=== PATIENT | male | born 1985 | race Two or more races ===

== ENCOUNTER 2019-04-29 12:42 | Inpatient (IN) | payer OTHER | END 2019-05-01 01:26 | disposition other institution (70) | LOC: YASAS 12:42 → Y6N 15:55 ==

== ENCOUNTER 2019-05-01 17:24 | Inpatient (IN) | payer OTHER ==
[2019-05-01 18:11] VITALS: BMI 23.3
--- NOTE | 2019-05-01 20:55 | HP ---
COWS - Scale Resting Pulse: 1= PA 81-100 Sweatin=Flushed/Facial Moisture Restless Observation: 3= Extraneous Movement Pupil Size: 2= Moderately Dilated (Pupils = 5 mm) Bone or Joint Aches: 0= None Runny Nose/ Eye Tearin= Nasal Congestion GI Upset > 30mins: 0= None Tremor Observation: 0= None Yawning Observation: 0= None Anxiety or Irritability: 4=Extreme Anxiety Goose Flesh Skin: 0=Smooth Skin COWS Score: 13 CIWA Score - Admission Criteria OASAS Guidelines: Admission for Medically Managed Detox: Requires at least one of the followin. CIWA greater than 12 2. Seizures within the past 24 hours 3. Delirium tremens within the past 24 hours 4. Hallucinations within the past 24 hours 5. Acute intervention needed for co occurring medical disorder 6. Acute intervention needed for co occurring psychiatric disorder 7. Severe withdrawal that cannot be handled at a lower level of care (continued vomiting, continued diarrhea, abnormal vital signs) requiring intravenous medication and/or fluids 8. Admission ROS [facility] Chief Complaint: I need to continue my detox. Allergies/Adverse Reactions: Allergies Allergy/AdvReac Type Severity Reaction Status Date / Time No Known Allergies Allergy Verified 05/01/19 18:06 History of Present Illness: THE PATIENT IS BEING ADMITTED A CONTINUATION OF THE 04/29/19 ADMISSION. PATIENT WAS EVALUATED AT [facility] AND RETURNED TO US, VIA AMBULANCE, IN LESS THAN 12 HOURS. 30 yom sent to [facility] on 05/01/19 for uncontrolled erratic behavioral issues. Patient was not medicated with methadone while at [facility]. Patient returned from [facility], w/ dx of substance induced psychiatric disorder, and being readmitted for completion of detox protocol. Discharged from [facility] at 12:30 pm and returned to [facility]. History and physical documentation from 04/29/19 admission reviewed and also reviewed with patient. Patient states "I just answered those questions before". Hx of heroin use disorder since age 13: Daily use via intravenous. Last used 04/29. Todays U-Tox (+) for MTD (Rx'd 04/29 and 04/30) Reports Crack/Cocaine use disorder since age 16- todays' U-tox neg Marijuana/K2?Spice use disorder(1-3 x/month) since 16- todays' U-tox neg. Nicotine use - 1.5 PPD. Hx: Overdose x 1 with last episode one year ago PMHX: Hep C, Anemia Psych: depression, PTSD Currently patient expresses anger. Physically the patient is tossing body from side to side, kicking bed frame. Patient is not voicing physical threats. Exam Limitations: Other (Angry and tossing body from side to side, kicking bed frame. Is not voicing physical threats.) - Ebola screening Have you traveled outside of the country in the last 21 days: No (N) Have you had contact with anyone from an Ebola affected area: No Have you been sick,other than usual withdrawal symptoms: No Do you have a fever: No - Review of Systems Constitutional: See HPI EENT: reports: No Symptoms Reported, Other Respiratory: reports: No Symptoms reported Cardiac: reports: No Symptoms Reported GI: reports: No Symptoms Reported : reports: No Symptoms Reported Musculoskeletal: reports: No Symptoms Reported Integumentary: reports: No Symptoms Reported Neuro: reports: No Symptoms reported Endocrine: reports: No Symptoms Reported Hematology: reports: No Symptoms Reported Psychiatric: reports: Agitated, Anxious Patient History - Patient Medical History Hx Anemia: Yes Hx Asthma: No Hx Chronic Obstructive Pulmonary Disease (COPD): No Hx Cancer: No Hx Cardiac Disorders: No Hx Congestive Heart Failure: No Hx Hypertension: No Hx Hypercholesterolemia: No Hx Pacemaker: No HX Cerebrovascular Accident: No Hx Seizures: No Hx Dementia: No Hx Diabetes: No Hx Gastrointestinal Disorders: No Hx Liver Disease: No Hx Genitourinary Disorders: No Hx Sexually Transmitted Disorders: No Hx Renal Disease (ESRD): No Hx Thyroid Disease: No Hx Human Immunodeficiency Virus (HIV): No Hx Hepatitis C: Yes Hx Depression: Yes Hx Suicide Attempt: No Hx Bipolar Disorder: No Hx Schizophrenia: No - Patient Surgical History Past Surgical History: No - PPD History Previous Implant?: Yes Implanted On Prior R Admission?: Yes Date: 05/01/19 PPD to be Administered?: No - Smoking Cessation Smoking history: Current every day smoker Have you smoked in the past 12 months: Yes Aproximately how many cigarettes per day: 30 Hx Chewing Tobacco Use: No Initiated information on smoking cessation: Yes 'Breaking Loose' booklet given: 05/01/19 - Substance & Tx. History Hx Alcohol Use: No Hx Substance Use: Yes Substance Use Type: Cocaine, Heroin, Marijuana, Opiates, Tranquilizers Hx Substance Use Treatment: Yes (detox) - Substances abused Heroin Substance route: Injection Frequency: Daily Amount used: 5BAGS Age of first use: 13 Date of last use: 04/29/19 Crack Substance route: Smoking Frequency: 1-3 times last 30 days Amount used: $40 Age of first use: 16 Date of last use: 04/22/19 K2/Spice Substance route: Smoking Frequency: Daily Amount used: $20 Age of first use: 20 Date of last use: 04/28/19 Crystal meth Substance route: Smoking Frequency: 1-3 times last 30 days Amount used: $40 Age of first use: 16 Date of last use: 04/22/19 PCP Substance route: Smoking Frequency: 1-3 times last 30 days Amount used: $40 Age of first use: 15 Date of last use: 04/28/19 Other Other (specify): FENTANYL Substance route: Injection Frequency: Daily Amount used: 7 BAGS- Fentanyl powder Age of first use: 16 Date of last use: 04/29/19 Admission Physical Exam [facility] - Vital Signs Vital Signs: Vital Signs - 24 hr 05/01/19 18:07 Temperature 98.6 F Pulse Rate 90 Respiratory 18 Rate Blood Pressure 144/88 - Physical General Appearance: Yes: Appropriately Dressed, Moderate Distress, Irritable, Anxious, Other HEENTM: Yes: ALLEY (Pupils = 5 mm) Respiratory: Yes: Lungs Clear, Normal Breath Sounds, No Respiratory Distress Cardiology: Yes: Regular Rhythm, Regular Rate, S1, S2 Musculoskeletal: Yes: full range of Motion, Gait Steady Neurological: Yes: Alert - Diagnostic (1) Cocaine abuse Current Visit: Yes Status: Chronic (2) Opioid dependence with withdrawal Current Visit: Yes Status: Acute (3) IVDU (intravenous drug user) Current Visit: Yes Status: Chronic (4) Nicotine dependence Current Visit: Yes Status: Chronic Qualifiers: Nicotine product type: cigarettes Substance use status: uncomplicated Qualified Code(s): F17.210 - Nicotine dependence, cigarettes, uncomplicated (5) Cannabis dependence Current Visit: Yes Status: Chronic (6) Substance induced mood disorder Current Visit: Yes Status: Chronic Comment: Evaluated by [facility] for Admission [facility] - Detox or Rehab [facility] Level of Care: Medically Managed Detox Regimen/Protocol: Methadone Claeared for Rehab Admission: No Breathalyzer - Breathalyzer Breathalyzer: 0 Urine Drug Screen - Test Device Lot number: [id number] Expiration date: 01/23/21 - Control Is test valid?: Yes - Results Drug screen NEGATIVE: No Urine drug screen results: THC-Marijuana, MARÍA-Cocaine, FEN-Fentanyl, MOP-Opiates Inpatient Rehab Admission - Rehab Decision to Admit Inpatient rehab admission?: No
[2019-05-01] MEDS ORDERED: ACETAMINOPHEN 325 MG TABLET (FP) PO PRN ×2 (22:02)
[2019-05-01] MEDS ORDERED: traZODone HCL 50 MG TABLET (FP) PO PRN ×2 (22:02→23:00)
[2019-05-01] MEDS ORDERED: IBUPROFEN 400 MG TABLET (FP) PO PRN (22:02)
[2019-05-01] MEDS ORDERED: MELATONIN 5 MG TABLETS PO PRN (22:02)
[2019-05-01] MEDS ORDERED: MAGNESIUM CITRATE 300 ML BOTTLE PO PRN (22:02)
[2019-05-01] MEDS ORDERED: BISMUTH SUBSALICYLATE 524 MG/30 ML UD PO PRN (22:02)
[2019-05-01] MEDS ORDERED: MENTHOL/PHENOL 1 EACH UD MM PRN (22:02)
[2019-05-01] MEDS ORDERED: NICOTINE POLACRILEX 4 MG GUM BUC PRN (22:02)
[2019-05-01] MEDS ORDERED: MAGNESIUM HYDROX 2400MG/30ML ORAL SUSPENSION 30 ML CUP PO PRN (22:02)
[2019-05-01] MEDS ORDERED: MAG HYDROX/AL HYDROX/SIMETH 30 ML UNIT-DOSE CUP PO PRN (22:02)
[2019-05-01] MEDS ORDERED: cloNIDine HCL 0.1 MG TABLET PO PRN (22:05)
[2019-05-01] MEDS ORDERED: METHADONE HCL 10 MG TABLET (FOR DETOX USE ONLY) PO ONE ×2 (22:25→23:00)
[2019-05-02] MEDS: clonazePAM 0.5 MG TABLET PO PRN ×2 (05:25→13:59)
[2019-05-02] MEDS: METHOCARBAMOL 500 MG TABLET PO PRN ×2 (07:40→13:59)
[2019-05-02] MEDS ORDERED: PRENATAL VITAMINS W/ FOLIC ACID TABLET (FP) PO SCH (10:00)
[2019-05-02] MEDS ORDERED: METHADONE HCL 10 MG TABLET (FOR DETOX USE ONLY) PO ONE (10:00)
[2019-05-02] MEDS ORDERED: NICOTINE 21 MG/24 HOURS TOPICAL PATCH TD SCH (10:00)
[2019-05-02 13:29] VITALS: BP 128/80; PULSE 87; TEMP 97.8
--- NOTE | 2019-05-02 15:25 | PN ---
[facility] CIWA - CIWA Score Nausea/Vomitin-No Nausea/No Vomiting Muscle Tremors: 3 Anxiety: 5 Agitation: 4-Moderately Restless Paroxysmal Sweats: 3 Orientation: 0-Oriented Tacttile Disturbances: 1-Very Mild Itch/Numbness Auditory Disturbances: 0-None Visual Disturbances: 2-Mild Sensitivity Headache: 0-None Present CIWA-Ar Total Score: 18 [facility] Progress Note (SOAP) Subjective: Body Aches, Anxious, Restless, Sweating, Tremors. Objective: PATIENT A & O X 3, OBSERVED AMBULATING ON UNIT UNASSISTED. IN NO ACUTE DISTRESS. 05/02/19 15:24 Vital Signs Temperature 97.8 F 05/02/19 13:29 Pulse Rate 87 05/02/19 13:29 Respiratory Rate 18 05/02/19 13:29 Blood Pressure 128/80 05/02/19 13:29 O2 Sat by Pulse Oximetry (%) ADMISSION LABS NOTED (FROM 04/30/2019; PATIENT WAS PREVIOUSLY ADMITTED TO DETOX ON 04/29/2019). PATIENT WAS EVALUATED AT [facility] ( [place], [place]) AND THEN RETUNRED FOR RE-ADMISSION AT [facility] FOR DETOX.FOR OPIATE USE. 05/02/19 15:25 Assessment: 05/02/19 15:27 WITHDRAWAL SYMPTOMS. Plan: CONTINUE DETOX. PRN ROBAXIN PO FOR BODY ACHES / MUSCLE SPASMS. PATIENT APPEARS QUITE ANXIOUS AND RESTLESS ON DETOX UNIT. PATIENT EXPRESSED CONCERN OVER TWO OTHER PATIENTS CURRENTLY ADMITTED ON DETOX UNIT, NOTING THAT HE KNOWS THEM FROM OUTSIDE AND FROM THE PAST AND THAT HE IS CONCERNED ABOUT POSSIBLE ALTERCATION WITH THEM. PATIENT UNWILLING TO IDENTIFY NAMES OF OTHER PATIENTS WHOM HE IS CONCERNED ABOUT WHEN ASKED. PATIENT ALSO CONCERNED ABOUT DIFFICULTY THAT HE IS CURRENTLY HAVING GETTING INTO TELEPHONE CONTACT WITH HIS FIANCE. PATIENT DENIES SUICIDAL / HOMICIDAL IDEATION. INTERDISCIPLINARY TEAM (SLOTS MANAGER, APPRAISAL COORDINATOR, CASE PICKER TENDER) MET WITH PATIENT TO DISCUSS THESE MATTERS. PATIENT AGREED TO IMMEDIATELY NOTIFY UNIT MEDICAL / NURSING / CASE MANAGEMENT STAFF MEMBER SHOULD HE FEEL THREATENED OR SHOULD HE FEEL THE URGE TO ENGAGE IN CONFRONTATION WITH ANY OTHER PATIENT ON THE DETOX UNIT AT ANY TIME. PATIENT ALSO ADVISED TO CONTACT APPRAISAL COORDINATOR AT HIS [facility] PROGRAM TO ASK FOR ASSISTANCE IN CONTACTING HIS FIANCE. PATIENT VERBALIZED UNDERSTANDING OF ALL RECOMMENDATIONS PRESENTED TO HIM.
--- NOTE | 2019-05-02 16:00 | CONSULT ---
[facility] Psychiatric Consult - Data Date of interview: 05/02/19 Admission source: Transfer from [address] [place] [address]. Identifying data: Patient is approached for the psychiatric evaluation. Mr Claros refused to talk to psychiatrist. Witnessed by nursing staff.
--- NOTE | 2019-05-02 16:21 | DS ---
[facility] Detox Discharge Summary Admission Date: 05/01/19 Discharge Date: 05/02/19 - History Present History: Cannabis Dependence, Cocaine Dependence, Opioid Dependence Additional Comments: DESPITE MULTIPLE ATTEMPTS AT REDIRECTION BY UNIT STAFF (RN'S, ELASTIC CUTTER, MA' S, PRINTED CIRCUIT DESIGNER), PATIENT NOTED TO BE ENGAGING IN DISRUPTIVE AND THREATENING BEHAVIOR ( AFFECTING BOTH DETOX UNIT STAFF AND OTHER PATIENTS) AT MULTIPLE TIMES DURING AM AND DURING AFTERNOON, INCLUDING BANGING ON WALL OF DETOX UNIT. PATIENT INSISTENT THAT HE WANTS TO SPEAK WITH HIS FIANCE. ABORIGINAL COMMUNITY COUNCIL MEMBER Claire RIDDLE ATTEMPTED TO ASSIST PATIENT IN GETTING INTO CONTACT WITH PATIENT'S FIANCE VIA TELEPHONE; HOWEVER, TELEPHONE NUMBER THAT PATIENT CLAIMS IS FOR HIS FIANCE IS NOT CONNECTING WITH HER A THIS TIME. PATIENT EXPRESSES FRUSTRATION OVER THIS AND CONTINUES TO REPEATEDLY INSIST THAT HE STILL WISHES TO SPEAK TO HER ANYWAY. DUE TO REPEATED ATTEMPTS AT REDIRECTION OF PATIENT WITH PERSISTENCE IN DISRUPTIVE BEHAVIOR AND CONCERN FOR SAFETY OF BOTH DETOX UNIT STAFF AND FOR SAFETY OF OTHER PATIENTS, PATIENT TO BE INVOLUNTARILY DISCHARGED FROM DETOX UNIT. ABORIGINAL COMMUNITY COUNCIL MEMBER DANIELLE AT PATIENT'S [facility] MADE AWARE OF THIS AND VERBALIZED UNDERSTANDING. ARRANGEMENTS FOR MEDICAL TRANSPORTATION TO BE MADE BE ABORIGINAL COMMUNITY COUNCIL MEMBER Claire RIDDLE TO TAKE PATIENT DIRECTLY BACK TO HIS [facility]. PATIENT WAS DISCHARGED FROM DETOX UNIT IN STABLE MEDICAL CONDITION. Pertinent Past History: Hep C, Depression, P.T.S.D., Anemia, Intravenous Drug User, Elevated Liver Enzymes (AST, ALT, Noted While Patient Was Admitted for Detox), Nicotine Dependence. - Physical Exam Results Vital Signs: Vital Signs Temperature 97.8 F 05/02/19 13:29 Pulse Rate 87 05/02/19 13:29 Respiratory Rate 18 05/02/19 13:29 Blood Pressure 128/80 05/02/19 13:29 O2 Sat by Pulse Oximetry (%) Pertinent Admission Physical Exam Findings: WITHDRAWAL SYMPTOMS. DETOX ADMISSION LABS NOTED (FROM [facility] DETOX ADMISSION ON 04/29/2019). - Medication Discharge Medications: Ambulatory Orders NK [No Known Home Medication] 04/29/19 - Diagnosis (1) Opioid dependence with withdrawal Current Visit: Yes Status: Acute (2) Cannabis dependence Current Visit: Yes Status: Chronic (3) Cocaine abuse Current Visit: Yes Status: Chronic (4) IVDU (intravenous drug user) Current Visit: Yes Status: Chronic (5) Nicotine dependence Current Visit: Yes Status: Chronic Qualifiers: Nicotine product type: cigarettes Substance use status: uncomplicated Qualified Code(s): F17.210 - Nicotine dependence, cigarettes, uncomplicated (6) Substance induced mood disorder Current Visit: Yes Status: Chronic (7) Elevated liver enzymes Current Visit: No Status: Acute - AMA Did Patient Leave Against Medical Advice: No
[2019-05-02] MEDS ORDERED: THIAMINE HCL 100 MG TABLET (FP) PO SCH (22:00)
[2019-05-03] MEDS ORDERED: METHADONE HCL 10 MG TABLET (FOR DETOX USE ONLY) PO ONE (10:00)
[2019-05-04] MEDS ORDERED: METHADONE HCL 10 MG TABLET (FOR DETOX USE ONLY) PO ONE (10:00)
[2019-05-05] MEDS ORDERED: METHADONE HCL 5 MG TABLET (FOR DETOX USE ONLY) PO ONE (06:00)
== END 2019-05-02 16:07 | disposition home or self-care (01) | DRG 773 ==
LOC: YASAS 17:24 → Y3N 21:38
PROVIDERS: ADMIT Surgery; ATTEND Surgery
PROC: HZ2ZZZZ Detoxification Services for Substance Abuse Treatment (ICD-10-PCS; principal; 2019-05-01)
DX: F11.23 Opioid dependence with withdrawal (principal); F14.20 Cocaine dependence, uncomplicated; F12.20 Cannabis dependence, uncomplicated; F15.10 Other stimulant abuse, uncomplicated; F16.10 Hallucinogen abuse, uncomplicated; F17.210 Nicotine dependence, cigarettes, uncomplicated; F19.24 Other psychoactive substance dependence with psychoactive substance-induced mood disorder; F32.9 Major depressive disorder, single episode, unspecified; F43.10 Post-traumatic stress disorder, unspecified; B18.2 Chronic viral hepatitis C; R94.5 Abnormal results of liver function studies
CPT/HCPCS: J0735

== ENCOUNTER 2019-08-21 11:24 | Inpatient (IN) | payer OTHER ==
[2019-08-21 13:16] VITALS: BMI 24.4
--- NOTE | 2019-08-21 14:06 | HP ---
COWS - Scale Resting Pulse: 0= [place] 80 or Below Sweatin=Flushed/Facial Moisture Restless Observation: 0= Sits Still Pupil Size: 0= Normal to Room Light Bone or Joint Aches: 1= Mild Discomfort Runny Nose/ Eye Tearin= Nasal Congestion GI Upset > 30mins: 2= Nausea/Diarrhea Tremor Observation: 0= None Yawning Observation: 0= None Anxiety or Irritability: 1=Feels Anxious/Irritable Goose Flesh Skin: 0=Smooth Skin COWS Score: 7 CIWA Score - Admission Criteria OASAS Guidelines: Admission for Medically Managed Detox: Requires at least one of the followin. CIWA greater than 12 2. Seizures within the past 24 hours 3. Delirium tremens within the past 24 hours 4. Hallucinations within the past 24 hours 5. Acute intervention needed for co occurring medical disorder 6. Acute intervention needed for co occurring psychiatric disorder 7. Severe withdrawal that cannot be handled at a lower level of care (continued vomiting, continued diarrhea, abnormal vital signs) requiring intravenous medication and/or fluids 8. Admission [facility] Chief Complaint: Norbert Claros is a 34 year old male presenting for heroin, cocaine, fentanyl detox. Allergies/Adverse Reactions: Allergies Allergy/AdvReac Type Severity Reaction Status Date / Time No Known Allergies Allergy Verified 08/21/19 13:11 History of Present Illness: Norbert Claros is a 34 year old male presenting for heroin, cocaine, fentanyl detox. Heroin: 1/2 bundle per day. last use was yesterday. Has been using for 12 years. States has been injecting. Injects into the R AC/forearm. Denies history of abscess or infection. Denies hospitalization for infections. Has a history of overdose 5-6 times, has had Narcan used. Has Narcan kit at home and has used it. Uses clean needles through needle exchange, sometimes reuses needles. Longest period of sobriety: 5 years, stopped because he was increasing his relationship with his family. Started using again when family issues arose and he couldn't see his daughter anymore. Fentanyl: 3 bags per day. Last use was yesterday States has been using for 2 years. IVDU. States he mixes with the heroin. Cocaine: uses a "josé miguel" everytime he uses a bag. Last use was yesterday. 50-60$ per day. IVDU. Marijuana: occasional has a joint. K2: 1 blunt. last use was yesterday. Has stated has had seizures in the past due to use. Stated has had falls but denies head hits. Has been on methadone program 2 years ago and highest dose was 80mg. Has been to detox and rehab in the past. Most recent detox was in April here. Plans for rehab after detox, will talk to counselor to find out where. Wants inpatient rehab. Wants to go back to methadone program. Medical History: Hep C (active, untreated) Psychiatric: bipolar, schizophrenia, chronic depression Surgeries: denies Meds: denies Social: apartment, lives by himself. Not in contact with family or friends that are supportive. Smokin ppd, 6-7 years. Exam Limitations: No Limitations - Ebola screening Have you traveled outside of the country in the last 21 days: No Have you had contact with anyone from an Ebola affected area: No - Review of Systems Constitutional: Chills, Changes in sleep EENT: reports: No Symptoms Reported Respiratory: reports: No Symptoms reported Cardiac: reports: No Symptoms Reported GI: reports: Diarrhea : reports: No Symptoms Reported Musculoskeletal: reports: Back Pain Integumentary: reports: No Symptoms Reported Neuro: reports: No Symptoms reported Endocrine: reports: No Symptoms Reported Hematology: reports: No Symptoms Reported Psychiatric: reports: Judgement Intact, Orientated x3, Anxious Patient History - Patient Medical History Hx Anemia: Yes Hx Asthma: No Hx Chronic Obstructive Pulmonary Disease (COPD): No Hx Cancer: No Hx Cardiac Disorders: No Hx Congestive Heart Failure: No Hx Hypertension: No Hx Hypercholesterolemia: No Hx Pacemaker: No HX Cerebrovascular Accident: No Hx Seizures: No Hx Dementia: No Hx Diabetes: No Hx Gastrointestinal Disorders: No Hx Liver Disease: No Hx Genitourinary Disorders: No Hx Sexually Transmitted Disorders: No Hx Renal Disease (ESRD): No Hx Thyroid Disease: No Hx Human Immunodeficiency Virus (HIV): No Hx Hepatitis C: Yes Hx Depression: Yes Hx Suicide Attempt: No Hx Bipolar Disorder: No Hx Schizophrenia: Yes - Patient Surgical History Past Surgical History: No Hx Neurologic Surgery: No Hx Cataract Extraction: No Hx Cardiac Surgery: No Hx Lung Surgery: No Hx Breast Surgery: No Hx Breast Biopsy: No Hx Abdominal Surgery: No Hx Appendectomy: No Hx Cholecystectomy: No Hx Genitourinary Surgery: No Hx Section: No Hx Orthopedic Surgery: No Anesthesia Reaction: No - PPD History Previous Implant?: Yes Documented Results: Negative w/o proof Implanted On Prior [facility] Admission?: Yes Date: 05/01/19 PPD to be Administered?: No - Smoking Cessation Smoking history: Current every day smoker Have you smoked in the past 12 months: Yes Aproximately how many cigarettes per day: 30 Hx Chewing Tobacco Use: No Initiated information on smoking cessation: Yes 'Breaking Loose' booklet given: 08/21/19 - Substance & Tx. History Hx Alcohol Use: No Hx Substance Use: Yes Substance Use Type: Cocaine, Heroin, Opiates (fentanyl) - Substances abused Heroin Substance route: Injection Frequency: Daily Amount used: 1 bundle Age of first use: 13 Date of last use: 08/20/19 Crack Substance route: Smoking Frequency: 1-3 times last 30 days Amount used: $40 Age of first use: 16 Date of last use: 08/20/19 K2/Spice Substance route: Smoking Frequency: Daily Amount used: $20 Age of first use: 20 Date of last use: 08/20/19 Crystal meth Substance route: Smoking Frequency: No use in 30 days Amount used: $40 Age of first use: 16 Date of last use: 04/22/19 PCP Substance route: Smoking Frequency: No use in 30 days Amount used: $40 Age of first use: 15 Date of last use: 04/28/19 Other Other (specify): FENTANYL Substance route: Injection Frequency: Daily Amount used: 7 BAGS- Fentanyl powder Age of first use: 16 Date of last use: 04/29/19 None Substance route: Smoking Frequency: No use in 30 days Amount used: $40 Age of first use: 16 Date of last use: 04/22/19 Methamphetamine Substance route: Smoking Frequency: No use in 30 days Amount used: $40 Age of first use: 16 Date of last use: 04/22/19 Admission Physical Exam [facility] - Vital Signs Vital Signs: Vital Signs - 24 hr 08/21/19 13:11 Temperature 97.0 F L Pulse Rate 65 Respiratory 16 Rate Blood Pressure 105/58 L - Physical General Appearance: Yes: Disheveled, Mild Distress HEENTM: Yes: Normal Voice, ALLEY, Pharynx Normal Respiratory: Yes: Chest Non-Tender, Lungs Clear, Normal Breath Sounds, No Respiratory Distress, No Accessory Muscle Use Neck: Yes: No masses,lesions,Nodules, Trachea in good position Breast: Yes: Breast Exam Deferred Cardiology: Yes: Regular Rhythm, Regular Rate, S1, S2 Abdominal: Yes: Normal Bowel Sounds, Non Tender, Flat, Soft Back: Yes: Normal Inspection Musculoskeletal: Yes: full range of Motion, Gait Steady, Back pain (tightness of R back muscles) Extremities: Yes: Normal Capillary Refill, Normal Inspection, Normal Range of Motion, Non-Tender Neurological: Yes: collection clerk II-XII NML intact, Fully Oriented, Alert, Motor Strength 5/5, Normal Mood/Affect, Normal Response Integumentary: Yes: Normal Color, Dry, Warm, Track Augustin (on R arm), Other (old cut augustin on arms) - Diagnostic (1) Anxiety Current Visit: Yes Status: Acute (2) Depression Current Visit: Yes Status: Acute (3) Opioid dependence with withdrawal Current Visit: No Status: Acute (4) Substance-induced sleep disorder Current Visit: No Status: Acute (5) Cannabis dependence Current Visit: No Status: Chronic (6) Cocaine abuse Current Visit: No Status: Chronic (7) Hepatitis C Current Visit: No Status: Chronic (8) IVDU (intravenous drug user) Current Visit: No Status: Chronic (9) Nicotine dependence Current Visit: No Status: Chronic Qualifiers: Nicotine product type: cigarettes Substance use status: uncomplicated Qualified Code(s): F17.210 - Nicotine dependence, cigarettes, uncomplicated (10) Substance induced mood disorder Current Visit: No Status: Chronic Comment: Evaluated by [facility] for Admission [facility] - Detox or Rehab [facility] Level of Care: Medically Managed Detox Regimen/Protocol: Methadone Breathalyzer - Breathalyzer Breathalyzer: 0 Urine Drug Screen - Test Device Lot number: [id number] Expiration date: 04/25/21 - Control Is test valid?: Yes - Results Drug screen NEGATIVE: No Urine drug screen results: THC-Marijuana, MARÍA-Cocaine, FEN-Fentanyl, MOP-Opiates , MTD-Methadone Inpatient Rehab Admission - Rehab Decision to Admit Inpatient rehab admission?: No
[2019-08-21] MEDS ORDERED: hydrOXYzine PAMOATE 25 MG CAPSULE (FP) PO PRN (14:28)
[2019-08-21] MEDS ORDERED: MAG HYDROX/AL HYDROX/SIMETH 30 ML UNIT-DOSE CUP PO PRN (14:28)
[2019-08-21] MEDS ORDERED: MAGNESIUM HYDROX 2400MG/30ML ORAL SUSPENSION 30 ML CUP PO PRN (14:28)
[2019-08-21] MEDS ORDERED: MAGNESIUM CITRATE 300 ML BOTTLE PO PRN (14:28)
[2019-08-21] MEDS ORDERED: BISMUTH SUBSALICYLATE 524 MG/30 ML UD PO PRN (14:28)
[2019-08-21] MEDS ORDERED: MENTHOL/PHENOL 1 EACH UD MM PRN (14:28)
[2019-08-21] MEDS ORDERED: IBUPROFEN 400 MG TABLET (FP) PO PRN (14:28)
[2019-08-21] MEDS ORDERED: cloNIDine HCL 0.1 MG TABLET PO PRN (14:28)
[2019-08-21] MEDS ORDERED: ACETAMINOPHEN 325 MG TABLET (FP) PO PRN ×2 (14:28)
--- NOTE | 2019-08-21 16:12 | PN ---
Teaching Attending Note Name of Resident: Anam Levin ATTENDING PHYSICIAN STATEMENT I saw and evaluated the patient. I reviewed the resident's note and discussed the case with the resident. I agree with the resident's findings and plan as documented. SUBJECTIVE: 34 year old male requesting heroin, cocaine, fentanyl detox. Heroin: 1/2 bundle per day. last use was yesterday , use x 12 years IVDU in [facility] , no abscess, needles from exchange, denies sharing, + re-using. OD x 5-6 x , Narcan used, longest sobriety 5 years, stopped w/ improved relationship with his family , relapse when family relationship deteriorated. on [facility] 80 mg 2 years ago , left program, planning to return to [facility] after detox , states methadone helped him to maintain sobriety . Fentanyl: 3 bags per day x 2 years . Last use was yesterday . Cocaine:IVDU . Last use was yesterday. 50-60$ per day Marijuana: occasional 1 joint. tobacco : 1 ppd K2: 1 blunt. last use was yesterday. Has stated has had seizures in the past due to use. Stated has had falls denies injuries Medical History: Hep C (active, untreated) Psychiatric: bipolar, schizophrenia, chronic depression denies SI / HI OBJECTIVE: wnwd , current symptoms as above . Vital Signs - 24 hr 08/21/19 13:11 Temperature 97.0 F L Pulse Rate 65 Respiratory 16 Rate Blood Pressure 105/58 L ASSESSMENT AND PLAN: opioid dependence - Methadone detox .
[2019-08-21 17:08] LABS: HEMATOCRIT 34.4 % (35.4-49); HEMOGLOBIN 11.2 GM/dL (11.7-16.9); MCH 27.8 pg (25.7-33.7); MCHC 32.6 g/dl (32.0-35.9); MEAN CELL VOLUME 85.2 fl (80-96); MEAN PLT VOLUME 8.3 fl (7.5-11.1); PLATELET COUNT 248 K/MM3 (134-434); RBC 4.04 M/mm3 (4.00-5.60); RDW 15.5 % (11.9-15.9); WHITE BLOOD COUNT 9.4 K/mm3 (4.0-10.0)
[2019-08-21 17:17] LABS: ALBUMIN 3.2 g/dl (3.4-5.0); BILIRUBIN,TOTAL 0.3 mg/dL (0.2-1); BLOOD UREA NITROGEN 9.7 mg/dL (7-18); CALCIUM 8.7 mg/dL (8.5-10.1); CREATININE 0.9 mg/dL (0.55-1.3); TOT PROT 6.2 g/dl (6.4-8.2)
[2019-08-21] MEDS ORDERED: METHADONE HCL 10 MG TABLET (FOR DETOX USE ONLY) PO ONE (17:30)
[2019-08-21] MEDS: THIAMINE HCL 100 MG TABLET (FP) PO SCH (22:17)
[2019-08-21] MEDS: METHOCARBAMOL 500 MG TABLET PO PRN (22:18)
[2019-08-21] MEDS: MELATONIN 5 MG TABLETS PO PRN (22:18)
[2019-08-22] MEDS ORDERED: METHADONE HCL 5 MG TABLET (FOR DETOX USE ONLY) PO ONE (10:00)
[2019-08-22] MEDS: NICOTINE 21 MG/24 HOURS TOPICAL PATCH TD SCH (10:15)
[2019-08-22] MEDS: PRENATAL VITAMINS W/ FOLIC ACID TABLET (FP) PO SCH (10:15)
--- NOTE | 2019-08-22 12:47 | PN ---
[facility] COWS - Scale Resting Pulse: 0= [place] 80 or Below Sweatin= Chills/Flushing Restless Observation: 1= Difficult to Sit Still Pupil Size: 0= Normal to Room Light Bone or Joint Aches: 2= Severe Diffuse Aches Runny Nose/ Eye Tearin= Nasal Congestion GI Upset > 30mins: 2= Nausea/Diarrhea Tremor Observation of Outstretched Hands: 2= Slight Tremor Visible Yawning Observation: 0= None Anxiety or Irritability: 4=Extreme Anxiety Goose Flesh Skin: 0=Smooth Skin COWS Score: 13 [facility] Progress Note (SOAP) Subjective: c/o abdominal cramps,chills, sweats, joint pain and back pain Objective: 08/22/19 12:46 Vital Signs Temperature 98.5 F 08/22/19 09:15 Pulse Rate 70 08/22/19 09:15 Respiratory Rate 18 08/22/19 09:15 Blood Pressure 112/59 L 08/22/19 09:15 O2 Sat by Pulse Oximetry (%) Laboratory Last Values WBC 9.4 K/mm3 (4.0-10.0) 08/21/19 15:00 RBC 4.04 M/mm3 (4.00-5.60) 08/21/19 15:00 Hgb 11.2 GM/dL (11.7-16.9) L 08/21/19 15:00 Hct 34.4 % (35.4-49) L 08/21/19 15:00 MCV 85.2 fl (80-96) 08/21/19 15:00 MCH 27.8 pg (25.7-33.7) 08/21/19 15:00 MCHC 32.6 g/dl (32.0-35.9) 08/21/19 15:00 RDW 15.5 % (11.9-15.9) 08/21/19 15:00 Plt Count 248 K/MM3 (134-434) 08/21/19 15:00 MPV 8.3 fl (7.5-11.1) 08/21/19 15:00 Sodium 136 mmol/L (136-145) 08/21/19 15:00 Potassium 4.0 mmol/L (3.5-5.1) 08/21/19 15:00 Chloride 103 mmol/L (98-107) 08/21/19 15:00 Carbon Dioxide 26 mmol/L (21-32) 08/21/19 15:00 Anion Gap 7 MMOL/L (8-16) L 08/21/19 15:00 BUN 9.7 mg/dL (7-18) 08/21/19 15:00 Creatinine 0.9 mg/dL (0.55-1.3) 08/21/19 15:00 Est GFR (CKD-EPI)AfAm 126.90 08/21/19 15:00 Est GFR (CKD-EPI)NonAf 109.49 08/21/19 15:00 Random Glucose 108 mg/dL (74-106) H 08/21/19 15:00 Calcium 8.7 mg/dL (8.5-10.1) 08/21/19 15:00 Total Bilirubin 0.3 mg/dL (0.2-1) 08/21/19 15:00 AST 15 U/L (15-37) 08/21/19 15:00 ALT 32 U/L (13-61) 08/21/19 15:00 Alkaline Phosphatase 84 U/L (45-117) 08/21/19 15:00 Total Protein 6.2 g/dl (6.4-8.2) L 08/21/19 15:00 Albumin 3.2 g/dl (3.4-5.0) L 08/21/19 15:00 RPR Titer Nonreactive (NONREACTIVE) 08/21/19 15:00 HIV 1&2 Antibody Screen Negative 08/21/19 15:00 HIV P24 Antigen Negative 08/21/19 15:00 labs reviewed Assessment: Patient Aox3, acute distress, irritable no adventitious breath sounds no abdominal tenderness full ROM no gait abnormality withdrawal sx Plan: Continue detox increase PO fluids Patient placed on behavior contract d/t inappropriate aggressive behavior in which slammed his food tray in his room.
[2019-08-22] MEDS ORDERED: GABAPENTIN 100 MG CAPSULE (FP) PO PRN (12:48)
--- NOTE | 2019-08-22 15:09 | CONSULT ---
[facility] Psychiatric Consult - Data Date of interview: 08/22/19 Admission source: [facility] Identifying data: Patient is approached at bedside for psychiatric interview. Mr Claros refuses. Nursing staff is informed.
[2019-08-22] MEDS: METHOCARBAMOL 500 MG TABLET PO PRN (22:26)
[2019-08-22] MEDS: MELATONIN 5 MG TABLETS PO PRN (22:26)
[2019-08-22] MEDS: THIAMINE HCL 100 MG TABLET (FP) PO SCH (22:26)
[2019-08-23 09:27] VITALS: BP 119/74; PULSE 58; TEMP 97.5
[2019-08-23] MEDS ORDERED: METHADONE HCL 10 MG TABLET (FOR DETOX USE ONLY) PO ONE (10:00)
[2019-08-23] MEDS: PRENATAL VITAMINS W/ FOLIC ACID TABLET (FP) PO SCH (10:22)
[2019-08-23] MEDS: NICOTINE 21 MG/24 HOURS TOPICAL PATCH TD SCH (10:23)
--- NOTE | 2019-08-23 14:11 | DS ---
[facility] Detox Discharge Summary Admission Date: 08/21/19 Discharge Date: 08/23/19 - History Present History: Cannabis Dependence, Cocaine Dependence, Opioid Dependence Additional Comments: DESPITE EFFORTS BY [employer] AND BY NURSING STAFF TO ADDRESS PATIENT'S MEDICAL NEEDS / CONCERNS, PATIENT DOES NOT WISH TO REMAIN TO COMPLETE DETOX REGIMEN AND INSISTS ON LEAVING DETOX UNIT AT THIS TIME. RISKS OF LEAVING DETOX UNIT AGAINST MEDICAL ADVICE AND PRIOR TO COMPLETION OF DETOX REGIMEN EXPLAINED TO PATIENT. PATIENT ADVISED TO GO IMMEDIATELY TO NEAREST ER SHOULD ANY INTOLERABLE WITHDRAWAL / DETOX SYMPTOMS DEVELOP AT ANY TIME. PATIENT VERBALIZED UNDERSTANDING OF ALL INFORMATION / RECOMMENDATIONS PRESENTED TO HIM PRIOR TO DEPARTURE FROM DETOX UNIT. PATIENT LEFT DETOX UNIT IN STABLE MEDICAL CONDITION. Pertinent Past History: Depression, Bipolar Disorder, Hep C, Schizophrenia, History Of Anemia, Anxiety, Intravenous Drug User. - Physical Exam Results Vital Signs: Vital Signs Temperature 97.5 F L 08/23/19 09:24 Pulse Rate 58 L 08/23/19 09:24 Respiratory Rate 18 08/23/19 09:24 Blood Pressure 119/74 08/23/19 09:24 O2 Sat by Pulse Oximetry (%) Pertinent Admission Physical Exam Findings: WITHDRAWAL SYMPTOMS. Laboratory Tests 08/21/19 08/21/19 08/21/19 15:00 15:00 15:00 WBC 9.4 RBC 4.04 Hgb 11.2 L Hct 34.4 L MCV 85.2 MCH 27.8 MCHC 32.6 RDW 15.5 Plt Count 248 MPV 8.3 Sodium 136 Potassium 4.0 Chloride 103 Carbon Dioxide 26 Anion Gap 7 L BUN 9.7 Creatinine 0.9 Est GFR (CKD-EPI)AfAm 126.90 Est GFR (CKD-EPI)NonAf 109.49 Random Glucose 108 H Calcium 8.7 Total Bilirubin 0.3 AST 15 ALT 32 Alkaline Phosphatase 84 Total Protein 6.2 L Albumin 3.2 L RPR Titer Nonreactive HIV 1&2 Antibody Screen HIV P24 Antigen 08/21/19 15:00 WBC RBC Hgb Hct MCV MCH MCHC RDW Plt Count MPV Sodium Potassium Chloride Carbon Dioxide Anion Gap BUN Creatinine Est GFR (CKD-EPI)AfAm Est GFR (CKD-EPI)NonAf Random Glucose Calcium Total Bilirubin AST ALT Alkaline Phosphatase Total Protein Albumin RPR Titer HIV 1&2 Antibody Screen Negative HIV P24 Antigen Negative LABS NOTED. - Medication Discharge Medications: Ambulatory Orders NK [No Known Home Medication] 04/29/19 - Diagnosis (1) Anxiety Current Visit: Yes Status: Acute (2) Depression Current Visit: Yes Status: Acute Qualifiers: Depression Type: unspecified Qualified Code(s): F32.9 - Major depressive disorder, single episode, unspecified (3) Opioid dependence with withdrawal Current Visit: Yes Status: Acute (4) Substance-induced sleep disorder Current Visit: Yes Status: Acute (5) Cannabis dependence Current Visit: Yes Status: Chronic (6) Cocaine abuse Current Visit: Yes Status: Chronic (7) Hepatitis C Current Visit: Yes Status: Chronic Qualifiers: Viral hepatitis chronicity: chronic Hepatic coma status: without hepatic coma Qualified Code(s): B18.2 - Chronic viral hepatitis C (8) IVDU (intravenous drug user) Current Visit: Yes Status: Chronic (9) Nicotine dependence Current Visit: Yes Status: Chronic Qualifiers: Nicotine product type: cigarettes Substance use status: uncomplicated Qualified Code(s): F17.210 - Nicotine dependence, cigarettes, uncomplicated (10) Substance induced mood disorder Current Visit: Yes Status: Chronic - AMA Did Patient Leave Against Medical Advice: Yes (PATIENT DID NOT WISH TO REMAIN TO COMPLETE DETOX REGIMEN.) S COWS - Scale Resting Pulse: 0= [place] 80 or Below Sweatin= No chills or Flushing Restless Observation: 1= Difficult to Sit Still Pupil Size: 0= Normal to Room Light Bone or Joint Aches: 2= Severe Diffuse Aches Runny Nose/ Eye Tearin= None GI Upset > 30mins: 1= Stomach Cramp (Poor Appetite.) Tremor Observation of Outstretched Hands: 0= None Yawning Observation: 1= 1-2x During Session Anxiety or Irritability: 4=Extreme Anxiety Goose Flesh Skin: 0=Smooth Skin COWS Score: 9
[2019-08-24] MEDS ORDERED: METHADONE HCL 5 MG TABLET (FOR DETOX USE ONLY) PO ONE (06:00)
== END 2019-08-23 11:17 | disposition left against medical advice (07) | DRG 770 ==
LOC: YASAS 11:24 → Y3N 17:05
PROVIDERS: ADMIT Surgery; ATTEND Surgery
PROC: HZ2ZZZZ Detoxification Services for Substance Abuse Treatment (ICD-10-PCS; principal; 2019-08-21)
DX: F11.23 Opioid dependence with withdrawal (principal); F12.20 Cannabis dependence, uncomplicated; F14.10 Cocaine abuse, uncomplicated; F17.210 Nicotine dependence, cigarettes, uncomplicated; F19.24 Other psychoactive substance dependence with psychoactive substance-induced mood disorder; F19.282 Other psychoactive substance dependence with psychoactive substance-induced sleep disorder; F41.9 Anxiety disorder, unspecified; F32.9 Major depressive disorder, single episode, unspecified; D64.9 Anemia, unspecified; B18.2 Chronic viral hepatitis C
CPT/HCPCS: 36415; 80053; 85027; 86593; 87389

== ENCOUNTER 2022-04-06 16:12 | Inpatient (IN) | payer OTHER ==
[2022-04-06 18:10] VITALS: BMI 16.2
[2022-04-06] MEDS ORDERED: MAG HYDROX/AL HYDROX/SIMETH 30 ML UNIT-DOSE CUP PO PRN (19:16)
[2022-04-06] MEDS ORDERED: guaiFENesin 200 MG/10 ML 10 ML UNIT-DOSE CUPS PO PRN (19:16)
[2022-04-06] MEDS ORDERED: NICOTINE POLACRILEX 2 MG GUM BUC PRN (19:16)
[2022-04-06] MEDS ORDERED: LOPERAMIDE HCL 2 MG CAPSULE PO PRN (19:16)
[2022-04-06] MEDS ORDERED: ACETAMINOPHEN 325 MG TABLET (FP) PO PRN ×2 (19:16)
[2022-04-06] MEDS ORDERED: DICYCLOMINE HCL 10 MG CAPSULE PO PRN (19:16)
[2022-04-06] MEDS ORDERED: MELATONIN 5 MG TABLETS PO PRN (19:16)
[2022-04-06] MEDS ORDERED: MAGNESIUM CITRATE 300 ML BOTTLE PO PRN (19:16)
[2022-04-06] MEDS ORDERED: IBUPROFEN 400 MG TABLET (FP) PO PRN (19:16)
[2022-04-06] MEDS ORDERED: BISMUTH SUBSALICYLATE 524 MG/30 ML PO PRN (19:16)
[2022-04-06] MEDS ORDERED: chlordiazePOXIDE HCL 25 MG CAPSULE PO PRN (19:18)
[2022-04-07] MEDS: chlordiazePOXIDE HCL 25 MG CAPSULE PO SCH ×5 (06:42→22:46)
[2022-04-07] MEDS: THIAMINE HCL 100 MG TABLET (FP) PO SCH ×2 (06:44→22:45)
[2022-04-07] MEDS ORDERED: chlordiazePOXIDE HCL 25 MG CAPSULE ONE (06:46)
[2022-04-07 09:58] LABS: HEMATOCRIT 38.6 % (35.4-49); HEMOGLOBIN 12.3 GM/dL (11.7-16.9); MCH 26.9 pg (25.7-33.7); MCHC 31.9 g/dl (32.0-35.9); MEAN CELL VOLUME 84.4 fl (80-96); MEAN PLT VOLUME 7.9 fl (7.5-11.1); PLATELET COUNT 220 10^3/uL (134-434); RBC 4.58 M/mm3 (4.00-5.60); RDW 14.9 % (11.9-15.9); WHITE BLOOD COUNT 7.4 K/mm3 (4.0-10.0)
[2022-04-07 10:23] LABS: BLOOD UREA NITROGEN 8.7 mg/dL (7-18)
[2022-04-07 10:25] LABS: CALCIUM 9.1 mg/dL (8.5-10.1)
[2022-04-07 10:26] LABS: ALBUMIN 3.7 g/dl (3.4-5.0); CREATININE 0.7 mg/dL (0.55-1.3)
[2022-04-07 10:28] LABS: BILIRUBIN,TOTAL 0.6 mg/dL (0.2-1); TOT PROT 7.2 g/dl (6.4-8.2)
[2022-04-07] MEDS: ONDANSETRON *ODT* 4 MG TABLET SL PRN (12:51)
[2022-04-07] MEDS: METHOCARBAMOL 500 MG TABLET PO PRN (13:35)
[2022-04-07] MEDS: NICOTINE 14 MG/24 HOURS TOPICAL PATCH TD SCH (13:42)
[2022-04-07] MEDS: PRENATAL VITAMINS W/ FOLIC ACID TABLET (FP) PO SCH (13:42)
[2022-04-07] MEDS: hydrOXYzine PAMOATE 25 MG CAPSULE (FP) PO PRN (18:08)
[2022-04-07] MEDS ORDERED: methaDONE HCL 10 MG TABLET PO ONE (22:40)
[2022-04-08] MEDS: ONDANSETRON *ODT* 4 MG TABLET SL PRN (03:37)
[2022-04-08] MEDS: hydrOXYzine PAMOATE 25 MG CAPSULE (FP) PO PRN ×2 (03:37→10:18)
[2022-04-08] MEDS: chlordiazePOXIDE HCL 25 MG CAPSULE PO SCH ×4 (06:33→22:54)
[2022-04-08] MEDS ORDERED: methaDONE HCL 40 MG DISPERSABLE TABLET PO SCH (09:45)
[2022-04-08] MEDS: PRENATAL VITAMINS W/ FOLIC ACID TABLET (FP) PO SCH (10:18)
[2022-04-08] MEDS: METHOCARBAMOL 500 MG TABLET PO PRN (10:18)
[2022-04-08] MEDS: NICOTINE 14 MG/24 HOURS TOPICAL PATCH TD SCH (10:19)
[2022-04-08] MEDS ORDERED: methaDONE 40 MG, methaDONE 20 MG PO ONE (10:30)
[2022-04-08] MEDS ORDERED: methaDONE HCL 40 MG DISPERSABLE TABLET ONE (11:41)
[2022-04-08] MEDS ORDERED: methaDONE HCL 10 MG TABLET ONE (11:41)
[2022-04-08] MEDS: P-EPHED 60MG/TRIPROLIDI 2.5MG TABLET PO PRN (18:13)
[2022-04-08] MEDS: BENZOCAINE/MENTHOL (CHLORASEPTIC ) LOZENGE MM PRN ×2 (18:14→22:55)
[2022-04-08] MEDS: THIAMINE HCL 100 MG TABLET (FP) PO SCH (22:54)
[2022-04-09] MEDS ORDERED: chlordiazePOXIDE HCL 10 MG CAPSULE PO PRN
[2022-04-09 00:13] LABS: SARS-CoV-2 NAA Not Detected (Not Detected)
[2022-04-09] MEDS: BENZOCAINE/MENTHOL (CHLORASEPTIC ) LOZENGE MM PRN ×3 (03:13→18:06)
[2022-04-09] MEDS: P-EPHED 60MG/TRIPROLIDI 2.5MG TABLET PO PRN (03:16)
[2022-04-09] MEDS ORDERED: methaDONE HCL 40 MG DISPERSABLE TABLET ONE (04:39)
[2022-04-09] MEDS ORDERED: methaDONE HCL 10 MG TABLET ONE (04:39)
[2022-04-09] MEDS: methaDONE 40 MG, methaDONE 20 MG PO SCH (05:25)
[2022-04-09] MEDS: chlordiazePOXIDE HCL 10 MG CAPSULE PO SCH ×4 (05:26→22:59)
[2022-04-09] MEDS: PRENATAL VITAMINS W/ FOLIC ACID TABLET (FP) PO SCH (10:21)
[2022-04-09] MEDS: NICOTINE 14 MG/24 HOURS TOPICAL PATCH TD SCH (10:21)
[2022-04-09] MEDS: hydrOXYzine PAMOATE 25 MG CAPSULE (FP) PO PRN ×2 (10:22→18:04)
[2022-04-09] MEDS: METHOCARBAMOL 500 MG TABLET PO PRN (10:23)
[2022-04-09] MEDS: THIAMINE HCL 100 MG TABLET (FP) PO SCH (22:59)
[2022-04-10] MEDS: SUVOREXANT 10 MG TABLET PO PRN ×2 (00:44→23:25)
[2022-04-10] MEDS: BENZOCAINE/MENTHOL (CHLORASEPTIC ) LOZENGE MM PRN ×3 (00:46→15:00)
[2022-04-10] MEDS ORDERED: methaDONE HCL 40 MG DISPERSABLE TABLET ONE (03:58)
[2022-04-10] MEDS ORDERED: methaDONE HCL 10 MG TABLET ONE (03:58)
[2022-04-10] MEDS: methaDONE 40 MG, methaDONE 20 MG PO SCH (05:00)
[2022-04-10] MEDS: chlordiazePOXIDE HCL 10 MG CAPSULE PO SCH ×2 (05:01→17:09)
[2022-04-10] MEDS: NICOTINE 10 MG CARTRIDGE (INHALER) IH PRN ×3 (09:39→23:32)
[2022-04-10] MEDS: PRENATAL VITAMINS W/ FOLIC ACID TABLET (FP) PO SCH (10:04)
[2022-04-10] MEDS: NICOTINE 21 MG/24 HOURS TOPICAL PATCH TD SCH (10:04)
[2022-04-10] MEDS: MAGNESIUM HYDROX 2400MG/30ML ORAL SUSPENSION 30 ML CUP PO PRN ×2 (10:06→14:58)
[2022-04-10] MEDS ORDERED: hydrOXYzine PAMOATE 50 MG CAPSULE (FP) PO ONE (10:15)
[2022-04-10] MEDS ORDERED: SODIUM PHOSPHATE/NA BIPHOS 133 ML ENEMA PR ONE (16:35)
[2022-04-10] MEDS: THIAMINE HCL 100 MG TABLET (FP) PO SCH (23:25)
[2022-04-10] MEDS: hydrOXYzine PAMOATE 25 MG CAPSULE (FP) PO PRN (23:25)
[2022-04-11] MEDS ORDERED: methaDONE HCL 40 MG DISPERSABLE TABLET ONE (03:57)
[2022-04-11] MEDS ORDERED: methaDONE HCL 10 MG TABLET ONE (03:57)
[2022-04-11] MEDS ORDERED: chlordiazePOXIDE HCL 10 MG CAPSULE PO ONE (05:00)
[2022-04-11] MEDS: methaDONE 40 MG, methaDONE 20 MG PO SCH (05:16)
[2022-04-11] MEDS: BENZOCAINE/MENTHOL (CHLORASEPTIC ) LOZENGE MM PRN ×2 (05:17→10:36)
[2022-04-11] MEDS ORDERED: DOCUSATE SODIUM 100 MG CAPSULE (FP) PO SCH (06:00)
[2022-04-11 09:27] VITALS: BP 130/71; PULSE 99; TEMP 98.1
[2022-04-11] MEDS: PRENATAL VITAMINS W/ FOLIC ACID TABLET (FP) PO SCH (10:34)
[2022-04-11] MEDS: NICOTINE 21 MG/24 HOURS TOPICAL PATCH TD SCH (10:35)
== END 2022-04-11 12:00 | disposition home or self-care (01) | DRG 773 ==
LOC: YASAS 16:12 → Y6N 04-07 11:50
PROVIDERS: ADMIT Allergy & Immunology; ATTEND Surgery
PROC: HZ2ZZZZ Detoxification Services for Substance Abuse Treatment (ICD-10-PCS; principal; 2022-04-07)
DX: F10.230 Alcohol dependence with withdrawal, uncomplicated (principal); F13.230 Sedative, hypnotic or anxiolytic dependence with withdrawal, uncomplicated; F11.20 Opioid dependence, uncomplicated; F16.10 Hallucinogen abuse, uncomplicated; F12.20 Cannabis dependence, uncomplicated; F17.210 Nicotine dependence, cigarettes, uncomplicated; F19.282 Other psychoactive substance dependence with psychoactive substance-induced sleep disorder; F19.280 Other psychoactive substance dependence with psychoactive substance-induced anxiety disorder; F19.24 Other psychoactive substance dependence with psychoactive substance-induced mood disorder; K59.03 Drug induced constipation; B18.2 Chronic viral hepatitis C; R63.4 Abnormal weight loss; Z68.1 Body mass index [BMI] 19.9 or less, adult
CPT/HCPCS: 36415; 74018-TC-FY; 80053; 85027; 86780; C9803-CS; Q0162; U0003; U0005

== ENCOUNTER 2022-04-10 19:47 | Emergency (ER) | payer OTHER ==
[2022-04-10 20:19] VITALS: BP 110/63; TEMP 97.4; BMI 16.2
[2022-04-10] MEDS ORDERED: SODIUM PHOSPHATE/NA BIPHOS 133 ML ENEMA PR ONE (20:39)
[2022-04-10 22:15] VITALS: PULSE 90
== END 2022-04-10 22:16 ==
LOC: JER 19:47
DX: K59.00 Constipation, unspecified (principal)
CPT/HCPCS: 99284-25

== ENCOUNTER 2022-04-14 16:41 | Inpatient (IN) | payer OTHER ==
[2022-04-14 21:14] VITALS: BMI 22.2
[2022-04-14] MEDS ORDERED: hydrOXYzine PAMOATE 50 MG CAPSULE (FP) PO ONE (23:34)
[2022-04-15] MEDS ORDERED: hydrOXYzine PAMOATE 25 MG CAPSULE (FP) PO ONE (00:28)
[2022-04-15] MEDS ORDERED: P-EPHED 60MG/TRIPROLIDI 2.5MG TABLET PO PRN (02:32)
[2022-04-15] MEDS ORDERED: MAGNESIUM HYDROX 2400MG/30ML ORAL SUSPENSION 30 ML CUP PO PRN (02:32)
[2022-04-15] MEDS ORDERED: ACETAMINOPHEN 325 MG TABLET (FP) PO PRN (02:32)
[2022-04-15] MEDS ORDERED: NICOTINE POLACRILEX 4 MG GUM BC PRN (02:32)
[2022-04-15] MEDS ORDERED: LOPERAMIDE HCL 2 MG CAPSULE PO PRN (02:32)
[2022-04-15] MEDS ORDERED: MAGNESIUM CITRATE 300 ML BOTTLE PO PRN (02:32)
[2022-04-15] MEDS ORDERED: guaiFENesin 200 MG/10 ML 10 ML UNIT-DOSE CUPS PO PRN (02:32)
[2022-04-15] MEDS ORDERED: IBUPROFEN 400 MG TABLET (FP) PO PRN (02:32)
[2022-04-15] MEDS ORDERED: MAG HYDROX/AL HYDROX/SIMETH 30 ML UNIT-DOSE CUP PO PRN (02:32)
[2022-04-15] MEDS ORDERED: hydrOXYzine PAMOATE 50 MG CAPSULE (FP) PO ONE (02:48)
[2022-04-15] MEDS ORDERED: methaDONE HCL 10 MG TABLET PO SCH (09:45)
[2022-04-15] MEDS ORDERED: methaDONE HCL 10 MG TABLET ONE (10:10)
[2022-04-15] MEDS: methaDONE 40 MG, methaDONE 30 MG PO SCH (10:11)
[2022-04-15] MEDS ORDERED: methaDONE HCL 40 MG DISPERSABLE TABLET ONE (10:11)
[2022-04-15] MEDS: PRENATAL VITAMINS W/ FOLIC ACID TABLET (FP) PO SCH (10:11)
[2022-04-15 13:39] LABS: HEMATOCRIT 32.9 % (35.4-49); HEMOGLOBIN 10.5 GM/dL (11.7-16.9); MCH 26.9 pg (25.7-33.7); MEAN CELL VOLUME 84.1 fl (80-96); MEAN PLT VOLUME 7.3 fl (7.5-11.1); PLATELET COUNT 268 10^3/uL (134-434); RBC 3.91 M/mm3 (4.00-5.60); RDW 14.7 % (11.9-15.9); WHITE BLOOD COUNT 5.6 K/mm3 (4.0-10.0)
[2022-04-15 14:02] LABS: CALCIUM 8.8 mg/dL (8.5-10.1)
[2022-04-15 14:05] LABS: CREATININE 0.8 mg/dL (0.55-1.3)
[2022-04-15 14:07] LABS: TOT PROT 5.9 g/dl (6.4-8.2)
[2022-04-15 14:14] LABS: BILIRUBIN,TOTAL 0.2 mg/dL (0.2-1)
[2022-04-15 14:18] LABS: SYPHILIS W/ RPR CONF NON-REACTIVE (NONREACTIVE)
[2022-04-15 15:19] LABS: BLOOD UREA NITROGEN 19.5 mg/dL (7-18)
[2022-04-15 15:24] LABS: ALBUMIN 2.9 g/dl (3.4-5.0)
[2022-04-15] MEDS: NICOTINE 10 MG CARTRIDGE (INHALER) IH PRN (19:51)
[2022-04-15] MEDS: hydrOXYzine PAMOATE 25 MG CAPSULE (FP) PO PRN (19:51)
[2022-04-15] MEDS ORDERED: BACITRACIN 0.9 GM PACKET TP ONE (20:16)
[2022-04-15] MEDS: THIAMINE HCL 100 MG TABLET (FP) PO SCH (21:15)
[2022-04-15] MEDS: SUVOREXANT 15 MG TABLET PO PRN (21:17)
[2022-04-16] MEDS: NICOTINE 10 MG CARTRIDGE (INHALER) IH PRN (02:48)
[2022-04-16] MEDS: hydrOXYzine PAMOATE 50 MG CAPSULE (FP) PO PRN ×2 (02:52→09:47)
[2022-04-16] MEDS ORDERED: methaDONE HCL 10 MG TABLET ONE (04:55)
[2022-04-16] MEDS ORDERED: methaDONE HCL 40 MG DISPERSABLE TABLET ONE (04:55)
[2022-04-16] MEDS: methaDONE 40 MG, methaDONE 30 MG PO SCH (06:14)
[2022-04-16] MEDS: PRENATAL VITAMINS W/ FOLIC ACID TABLET (FP) PO SCH (09:45)
[2022-04-16] MEDS: NICOTINE 21 MG/24 HOURS TOPICAL PATCH TD SCH (11:15)
[2022-04-16 18:16] LABS: URINE APPEARANCE TURBID; URINE BILIRUBIN NEGATIVE (NEGATIVE); URINE COLOR YELLOW; URINE GLUCOSE (UA) NEGATIVE (NEGATIVE); URINE KETONE NEGATIVE (NEGATIVE); URINE LEUK ESTERASE NEGATIVE (NEGATIVE); URINE NITRITE NEGATIVE (NEGATIVE); URINE PROTEIN NEGATIVE (NEGATIVE); URINE UROBILINOGEN 0.2 mg/dL (0.2-1.0)
[2022-04-16] MEDS: THIAMINE HCL 100 MG TABLET (FP) PO SCH (21:36)
[2022-04-16] MEDS: SUVOREXANT 15 MG TABLET PO PRN (21:37)
[2022-04-17] MEDS: SUVOREXANT 15 MG TABLET PO PRN ×2 (00:33→21:20)
[2022-04-17] MEDS ORDERED: methaDONE HCL 40 MG DISPERSABLE TABLET ONE (03:18)
[2022-04-17] MEDS ORDERED: methaDONE HCL 10 MG TABLET ONE (03:18)
[2022-04-17] MEDS: methaDONE 40 MG, methaDONE 30 MG PO SCH (08:17)
[2022-04-17] MEDS: NICOTINE 21 MG/24 HOURS TOPICAL PATCH TD SCH (10:11)
[2022-04-17] MEDS: hydrOXYzine PAMOATE 50 MG CAPSULE (FP) PO PRN ×2 (10:13→19:22)
[2022-04-17] MEDS: PRENATAL VITAMINS W/ FOLIC ACID TABLET (FP) PO SCH (10:15)
[2022-04-17] MEDS: NICOTINE 10 MG CARTRIDGE (INHALER) IH PRN (11:06)
[2022-04-17] MEDS: BENZOCAINE/MENTHOL (CHLORASEPTIC ) LOZENGE MM PRN ×2 (14:59→19:16)
[2022-04-17] MEDS: THIAMINE HCL 100 MG TABLET (FP) PO SCH (21:21)
[2022-04-18] MEDS: BENZOCAINE/MENTHOL (CHLORASEPTIC ) LOZENGE MM PRN ×5 (00:35→21:39)
[2022-04-18] MEDS: hydrOXYzine PAMOATE 50 MG CAPSULE (FP) PO PRN ×4 (00:35→21:37)
[2022-04-18] MEDS ORDERED: methaDONE HCL 40 MG DISPERSABLE TABLET ONE (04:27)
[2022-04-18] MEDS ORDERED: methaDONE HCL 10 MG TABLET ONE (04:27)
[2022-04-18] MEDS: methaDONE 40 MG, methaDONE 30 MG PO SCH (06:33)
[2022-04-18] MEDS: NICOTINE 21 MG/24 HOURS TOPICAL PATCH TD SCH (09:36)
[2022-04-18] MEDS: PRENATAL VITAMINS W/ FOLIC ACID TABLET (FP) PO SCH (09:36)
[2022-04-18] MEDS: hydrOXYzine PAMOATE 25 MG CAPSULE (FP) PO PRN (17:36)
[2022-04-18] MEDS: SUVOREXANT 15 MG TABLET PO PRN (21:37)
[2022-04-18] MEDS: THIAMINE HCL 100 MG TABLET (FP) PO SCH (21:37)
[2022-04-19] MEDS ORDERED: methaDONE HCL 40 MG DISPERSABLE TABLET ONE (03:16)
[2022-04-19] MEDS ORDERED: methaDONE HCL 10 MG TABLET ONE (03:16)
[2022-04-19] MEDS: methaDONE 40 MG, methaDONE 30 MG PO SCH (07:40)
[2022-04-19] MEDS: BENZOCAINE/MENTHOL (CHLORASEPTIC ) LOZENGE MM PRN (07:41)
[2022-04-19] MEDS: hydrOXYzine PAMOATE 50 MG CAPSULE (FP) PO PRN ×3 (07:41→21:20)
[2022-04-19] MEDS: PRENATAL VITAMINS W/ FOLIC ACID TABLET (FP) PO SCH (10:12)
[2022-04-19] MEDS: NICOTINE 21 MG/24 HOURS TOPICAL PATCH TD SCH (10:12)
[2022-04-19] MEDS: THIAMINE HCL 100 MG TABLET (FP) PO SCH (21:13)
[2022-04-19] MEDS: MELATONIN 5 MG TABLETS PO PRN (21:13)
[2022-04-19] MEDS: SUVOREXANT 15 MG TABLET PO PRN (21:17)
[2022-04-20] MEDS: BENZOCAINE/MENTHOL (CHLORASEPTIC ) LOZENGE MM PRN ×2 (01:12→09:59)
[2022-04-20] MEDS: hydrOXYzine PAMOATE 50 MG CAPSULE (FP) PO PRN ×4 (01:12→21:22)
[2022-04-20] MEDS ORDERED: methaDONE HCL 10 MG TABLET ONE (03:12)
[2022-04-20] MEDS ORDERED: methaDONE HCL 40 MG DISPERSABLE TABLET ONE (03:12)
[2022-04-20] MEDS: methaDONE 40 MG, methaDONE 30 MG PO SCH (06:37)
[2022-04-20] MEDS: NICOTINE 10 MG CARTRIDGE (INHALER) IH PRN (08:50)
[2022-04-20] MEDS: PRENATAL VITAMINS W/ FOLIC ACID TABLET (FP) PO SCH (09:59)
[2022-04-20] MEDS: NICOTINE 21 MG/24 HOURS TOPICAL PATCH TD SCH (09:59)
[2022-04-20] MEDS: THIAMINE HCL 100 MG TABLET (FP) PO SCH (21:21)
[2022-04-20] MEDS: MELATONIN 5 MG TABLETS PO PRN (21:21)
[2022-04-20] MEDS: SUVOREXANT 20 MG TABLET PO PRN (21:22)
[2022-04-20] MEDS ORDERED: SUVOREXANT 15 MG TABLET PO PRN (22:00)
[2022-04-21] MEDS ORDERED: methaDONE HCL 40 MG DISPERSABLE TABLET ONE (03:18)
[2022-04-21] MEDS ORDERED: methaDONE HCL 10 MG TABLET ONE (03:18)
[2022-04-21] MEDS: BENZOCAINE/MENTHOL (CHLORASEPTIC ) LOZENGE MM PRN ×2 (06:38→13:25)
[2022-04-21] MEDS: methaDONE 40 MG, methaDONE 30 MG PO SCH (06:38)
[2022-04-21] MEDS: hydrOXYzine PAMOATE 50 MG CAPSULE (FP) PO PRN ×3 (06:38→21:29)
[2022-04-21] MEDS: NICOTINE 21 MG/24 HOURS TOPICAL PATCH TD SCH (10:01)
[2022-04-21] MEDS: PRENATAL VITAMINS W/ FOLIC ACID TABLET (FP) PO SCH (10:01)
[2022-04-21] MEDS: METHYL SALICYLATE/MENTHOL OINT 30 GM TUBE TP SCH ×2 (13:32→21:31)
[2022-04-21] MEDS: METHOCARBAMOL 500 MG TABLET PO SCH ×3 (14:32→21:30)
[2022-04-21] MEDS: NICOTINE 10 MG CARTRIDGE (INHALER) IH PRN (18:25)
[2022-04-21] MEDS: SUVOREXANT 20 MG TABLET PO PRN (21:29)
[2022-04-21] MEDS: THIAMINE HCL 100 MG TABLET (FP) PO SCH (21:30)
[2022-04-21] MEDS: MELATONIN 5 MG TABLETS PO PRN (21:30)
[2022-04-22] MEDS ORDERED: methaDONE HCL 10 MG TABLET ONE (03:10)
[2022-04-22] MEDS ORDERED: methaDONE HCL 40 MG DISPERSABLE TABLET ONE (03:10)
[2022-04-22] MEDS: methaDONE 40 MG, methaDONE 30 MG PO SCH (06:42)
[2022-04-22] MEDS: hydrOXYzine PAMOATE 50 MG CAPSULE (FP) PO PRN ×3 (06:43→21:04)
[2022-04-22] MEDS: BENZOCAINE/MENTHOL (CHLORASEPTIC ) LOZENGE MM PRN ×3 (06:44→21:05)
[2022-04-22] MEDS: METHYL SALICYLATE/MENTHOL OINT 30 GM TUBE TP SCH ×2 (09:15→21:04)
[2022-04-22] MEDS: FERROUS SO4 325 MG TABLET (FP) PO SCH (09:15)
[2022-04-22] MEDS: NICOTINE 21 MG/24 HOURS TOPICAL PATCH TD SCH (09:15)
[2022-04-22] MEDS: PRENATAL VITAMINS W/ FOLIC ACID TABLET (FP) PO SCH (09:16)
[2022-04-22] MEDS: METHOCARBAMOL 500 MG TABLET PO SCH ×4 (09:16→21:04)
[2022-04-22] MEDS: MELATONIN 5 MG TABLETS PO PRN (21:04)
[2022-04-22] MEDS: THIAMINE HCL 100 MG TABLET (FP) PO SCH (21:04)
[2022-04-22] MEDS: NICOTINE 10 MG CARTRIDGE (INHALER) IH PRN (21:05)
[2022-04-22] MEDS ORDERED: SUVOREXANT 10 MG TABLET PO PRN (22:00)
[2022-04-23] MEDS ORDERED: methaDONE HCL 10 MG TABLET ONE (04:12)
[2022-04-23] MEDS ORDERED: methaDONE HCL 40 MG DISPERSABLE TABLET ONE (04:12)
[2022-04-23] MEDS: methaDONE 40 MG, methaDONE 30 MG PO SCH (06:16)
[2022-04-23] MEDS: hydrOXYzine PAMOATE 50 MG CAPSULE (FP) PO PRN (06:16)
[2022-04-23] MEDS: BENZOCAINE/MENTHOL (CHLORASEPTIC ) LOZENGE MM PRN (06:17)
[2022-04-23 07:02] VITALS: TEMP 98.6
[2022-04-23] MEDS: NICOTINE 21 MG/24 HOURS TOPICAL PATCH TD SCH (09:17)
[2022-04-23] MEDS: FERROUS SO4 325 MG TABLET (FP) PO SCH (09:17)
[2022-04-23] MEDS: METHYL SALICYLATE/MENTHOL OINT 30 GM TUBE TP SCH (09:17)
[2022-04-23] MEDS: METHOCARBAMOL 500 MG TABLET PO SCH ×2 (09:18→15:46)
[2022-04-23] MEDS: PRENATAL VITAMINS W/ FOLIC ACID TABLET (FP) PO SCH (09:18)
[2022-04-23 11:50] VITALS: BP 121/73; PULSE 78
== END 2022-04-23 14:50 | disposition home or self-care (01) | DRG 772 ==
LOC: YASAS 16:41 → Y5N 04-15 02:32 → Y3E 04-15 14:30
PROVIDERS: ADMIT Allergy & Immunology; ATTEND Psychiatry & Neurology Psychiatry
PROC: HZ42ZZZ Group Counseling for Substance Abuse Treatment, Cognitive-Behavioral (ICD-10-PCS; principal; 2022-04-15)
DX: F19.20 Other psychoactive substance dependence, uncomplicated (principal); F11.20 Opioid dependence, uncomplicated; F10.20 Alcohol dependence, uncomplicated; F13.20 Sedative, hypnotic or anxiolytic dependence, uncomplicated; F17.210 Nicotine dependence, cigarettes, uncomplicated; F19.280 Other psychoactive substance dependence with psychoactive substance-induced anxiety disorder; F19.282 Other psychoactive substance dependence with psychoactive substance-induced sleep disorder; F19.24 Other psychoactive substance dependence with psychoactive substance-induced mood disorder; F39 Unspecified mood [affective] disorder; D64.9 Anemia, unspecified; M25.532 Pain in left wrist; M79.89 Other specified soft tissue disorders; R63.4 Abnormal weight loss; Z68.22 Body mass index [BMI] 22.0-22.9, adult; Z86.19 Personal history of other infectious and parasitic diseases; Z91.013 Allergy to seafood
CPT/HCPCS: 36415; 80053; 81003; 85027; 86780; 86803; 87522; C9803-CS; U0003; U0005

== ENCOUNTER 2022-04-23 12:50 | Emergency (ER) | payer OTHER ==
[2022-04-23 13:12] VITALS: BP 127/71; PULSE 79; TEMP 98.3; BMI 24.8
[2022-04-23] MEDS ORDERED: KETOROLAC TROMETHAMINE 30 MG/1 ML VIAL ONE (13:57)
[2022-04-23] MEDS ORDERED: KETOROLAC TROMETHAMINE 30 MG/1 ML VIAL IM ONE (13:58)
== END 2022-04-23 15:00 | disposition home or self-care (01) ==
LOC: JERFT 12:50 → JER 12:50 → JERFT 15:00
PROC: 3E0233Z Introduction of Anti-inflammatory into Muscle, Percutaneous Approach (ICD-10-PCS; principal; 2022-04-23)
DX: S63.92XA Sprain of unspecified part of left wrist and hand, initial encounter (principal); X50.3XXA Overexertion from repetitive movements, initial encounter
CPT/HCPCS: 10060; 73110-TC-LT-FY; 73130-TC-LT-FY; 96372; 99284-25

== ENCOUNTER 2022-08-31 14:30 | Inpatient (IN) | payer OTHER ==
[2022-08-31 15:35] VITALS: BMI 24.7
[2022-08-31] MEDS ORDERED: ACETAMINOPHEN 325 MG TABLET (FP) PO PRN ×2 (17:33)
[2022-08-31] MEDS ORDERED: ONDANSETRON *ODT* 4 MG TABLET SL PRN (17:33)
[2022-08-31] MEDS ORDERED: MAGNESIUM HYDROX 2400MG/30ML ORAL SUSPENSION 30 ML CUP PO PRN (17:33)
[2022-08-31] MEDS ORDERED: NICOTINE 10 MG CARTRIDGE (INHALER) IH PRN (17:33)
[2022-08-31] MEDS ORDERED: IBUPROFEN 400 MG TABLET (FP) PO PRN (17:33)
[2022-08-31] MEDS ORDERED: BENZOCAINE/MENTHOL (CHLORASEPTIC ) LOZENGE MM PRN (17:33)
[2022-08-31] MEDS ORDERED: IBUPROFEN 600 MG TABLET (FP) PO PRN (17:33)
[2022-08-31] MEDS ORDERED: LOPERAMIDE HCL 2 MG CAPSULE PO PRN (17:33)
[2022-08-31] MEDS ORDERED: cloNIDine HCL 0.1 MG TABLET PO PRN (17:33)
[2022-08-31] MEDS ORDERED: BISMUTH SUBSALICYLATE 524 MG/30 ML PO PRN (17:33)
[2022-08-31] MEDS ORDERED: METHOCARBAMOL 500 MG TABLET PO PRN (17:33)
[2022-08-31] MEDS ORDERED: MAGNESIUM CITRATE 300 ML BOTTLE PO PRN (17:33)
[2022-08-31] MEDS ORDERED: DICYCLOMINE HCL 10 MG CAPSULE PO PRN (17:33)
[2022-08-31] MEDS ORDERED: NALOXONE HCL (KLOXXADO) 8 MG SPRAY NS PRN (17:33)
[2022-08-31] MEDS ORDERED: MAG HYDROX/AL HYDROX/SIMETH 30 ML UNIT-DOSE CUP PO PRN (17:33)
[2022-08-31] MEDS ORDERED: methaDONE HCL 10 MG TABLET (FOR DETOX USE ONLY) PO ONE (17:45)
[2022-08-31] MEDS: hydrOXYzine PAMOATE 25 MG CAPSULE (FP) PO SCH ×2 (18:05→22:47)
[2022-08-31] MEDS ORDERED: MELATONIN 5 MG TABLETS PO SCH (22:00)
[2022-08-31] MEDS ORDERED: THIAMINE HCL 100 MG TABLET (FP) PO SCH (22:00)
[2022-08-31] MEDS: SULFAMETHOXAZOLE/TRIMETHOPRIM 800MG/160MG D.S. TABLET PO SCH (22:46)
[2022-09-01] MEDS: hydrOXYzine PAMOATE 25 MG CAPSULE (FP) PO SCH (06:25)
[2022-09-01 06:29] VITALS: RESP 17
[2022-09-01 09:12] VITALS: BP 132/78; PULSE 78; TEMP 96.9
[2022-09-01] MEDS ORDERED: methaDONE HCL 10 MG TABLET (FOR DETOX USE ONLY) PO ONE (09:32)
[2022-09-01] MEDS ORDERED: hydrOXYzine PAMOATE 25 MG CAPSULE (FP) PO PRN (09:34)
[2022-09-01] MEDS ORDERED: PRENATAL VITAMINS W/ FOLIC ACID TABLET (FP) PO SCH (10:00)
[2022-09-01 10:01] LABS: HEMOGLOBIN 12.1 GM/dL (11.7-16.9); MCH 25.5 pg (25.7-33.7); MCHC 31.7 g/dl (32.0-35.9); MEAN CELL VOLUME 80.3 fl (80-96); MEAN PLT VOLUME 7.7 fl (7.5-11.1); PLATELET COUNT 301 10^3/uL (134-434); RBC 4.73 M/mm3 (4.00-5.60); RDW 16.2 % (11.9-15.9); WHITE BLOOD COUNT 6.4 K/mm3 (4.0-10.0)
[2022-09-01 10:02] LABS: ALBUMIN 3.4 g/dl (3.4-5.0); BLOOD UREA NITROGEN 9.6 mg/dL (7-18)
[2022-09-01 10:05] LABS: CREATININE 0.7 mg/dL (0.55-1.3)
[2022-09-01 10:06] LABS: BILIRUBIN,TOTAL 0.4 mg/dL (0.2-1); TOT PROT 7.1 g/dl (6.4-8.2)
[2022-09-01] MEDS: SULFAMETHOXAZOLE/TRIMETHOPRIM 800MG/160MG D.S. TABLET PO SCH (10:40)
[2022-09-02] MEDS ORDERED: methaDONE HCL 10 MG TABLET (FOR DETOX USE ONLY) PO ONE (10:00)
[2022-09-04] MEDS ORDERED: methaDONE HCL 10 MG TABLET (FOR DETOX USE ONLY) PO ONE (10:00)
== END 2022-09-01 12:30 | disposition left against medical advice (07) | DRG 770 ==
LOC: YASAS 14:30 → Y6N 17:34
PROVIDERS: ADMIT Allergy & Immunology; ATTEND Surgery
PROC: HZ2ZZZZ Detoxification Services for Substance Abuse Treatment (ICD-10-PCS; principal; 2022-08-31)
DX: F11.23 Opioid dependence with withdrawal (principal); F14.20 Cocaine dependence, uncomplicated; F16.20 Hallucinogen dependence, uncomplicated; F12.20 Cannabis dependence, uncomplicated; F17.210 Nicotine dependence, cigarettes, uncomplicated; L53.8 Other specified erythematous conditions
CPT/HCPCS: 36415; 80053; 85027; 86780; C9803-CS; U0003; U0005